=== PATIENT | female | born 1970 | race African-American/Black ===

== ENCOUNTER 2018-05-08 21:41 | Emergency (ER) | payer OTHER ==
[~2018-05-08] VITALS: Ht 162.6 cm; Wt 57.6 kg
--- NOTE | 2018-05-08 21:59 | NUR ---
[id number].
[2018-05-08 22:03] VITALS: BP 134/80
== END 2018-05-08 22:04 ==
LOC: ER 21:44
DX: Z02.89 Encounter for other administrative examinations (principal); R51 Headache
CPT/HCPCS: 99283; A4663